=== PATIENT | male | born 1995 | race Two or more races ===

== ENCOUNTER 2020-07-16 19:59 | Emergency (ER) | payer MEDICAID ==
[~2020-07-16] VITALS: Ht 182.9 cm; Wt 77.0 kg
[2020-07-16] MEDS ORDERED: IBUPROFEN 600MG TABLET PO ONE (21:00)
[2020-07-16 21:17] VITALS: BP 117/71
== END 2020-07-16 22:10 | disposition home or self-care (01) ==
LOC: ER 19:59
DX: M25.551 Pain in right hip (principal); Z98.890 Other specified postprocedural states
CPT/HCPCS: 73502; 99283

== ENCOUNTER 2020-10-08 22:06 | Emergency (ER) | payer SELFPAY ==
[~2020-10-08] VITALS: Ht 182.9 cm; Wt 82.0 kg
[2020-10-08 22:50] VITALS: BP 130/74
== END 2020-10-08 22:58 | disposition home or self-care (01) ==
LOC: ER 22:06
DX: K64.8 Other hemorrhoids (principal); K59.00 Constipation, unspecified
CPT/HCPCS: 99282